=== PATIENT | male | born 1960 | race Caucasian/White ===

== ENCOUNTER → 2017-05-31 | Outpatient (CLI) | payer OTHER ==
[~2017-05-31] MED LIST: BP MED; CRESTOR20 MG PO; FISH OIL 1,2001 EAC4 PO; LOSARTAN POTAS100 MG PO; LUNESTA3 MG PO; MOTRIN800 MG PO
== END | disposition home or self-care (01) ==
LOC: CDC 16:08
DX: Z01.810 Encounter for preprocedural cardiovascular examination (principal); M75.41 Impingement syndrome of right shoulder; M19.011 Primary osteoarthritis, right shoulder; I49.8 Other specified cardiac arrhythmias
CPT/HCPCS: 93000